=== PATIENT | male | born 1945 | race Caucasian/White ===

== ENCOUNTER → 2017-04-15 | Outpatient (CLI) | payer MEDICARE, OTHER ==
--- NOTE | 2017-04-15 12:30 | KCIC ---
Two-view chest, bilateral single view standing AP knees, and 6 view cervical spine. HISTORY: COPD. Chronic neck pain. Chronic knee pain. COMPARISON: None Single view standing AP knee Medial and lateral joint spaces appear intact. No apparent bone destruction or significant osteophyte formation. Bones appear demineralized. 2 view chest Cardiac silhouette not enlarged. The aorta is very tortuous. Postsurgical changes are seen in the chest. Cardiac valvular prosthesis is noted. No evidence of pneumothorax. No focal airspace consolidation. No evidence of pleural effusion. Cervical spine series C1-C6 are visualized on the lateral view. Degenerative disease noted with loss of height and marginal osteophytes particularly C5-C6 and C6-C7. Prevertebral soft tissues demonstrate no abnormal swelling. No acute fracture or aggressive bone destruction. There is osseous encroachment upon neural foramina at multiple levels bilaterally due to degenerative osteophytes. IMPRESSION: 1. Degenerative changes of the cervical spine with neural foraminal stenosis. 2. No significant radiographic abnormality of the knees. 3. No acute findings in the chest. Electronically signed by: Jesus North MD (04/15/2017 12:26 PM)
== END | disposition home or self-care (01) ==
LOC: KCIC 11:14
PROVIDERS: ATTEND Physical Medicine & Rehabilitation
DX: J44.9 Chronic obstructive pulmonary disease, unspecified (principal); J40 Bronchitis, not specified as acute or chronic; M48.02 Spinal stenosis, cervical region; M25.561 Pain in right knee; M25.562 Pain in left knee; M54.2 Cervicalgia; G89.29 Other chronic pain
CPT/HCPCS: 71020; 72050; 73565